=== PATIENT | male | born 1995 | race Caucasian/White ===

== ENCOUNTER 2024-01-19 08:35 | Emergency (ER) | payer SELFPAY ==
[2024-01-19 09:03] LABS: Absolute Eosinophils 0.1 K/uL (0-0.5); Absolute Lymphocytes (CBC) 1.8 K/uL (0.7-4.9); Absolute Monocytes 1.1 K/uL (0.1-1.3); Absolute Neutrophil 5.6 K/uL (1.8-8.0); Basophils % 0.4 % (0-1.3); Eosinophils % 1.3 % (0-4.4); Hematocrit 44.2 % (39.6-49.0); Hemoglobin 14.3 g/dL (13.6-17.9); Lymphocytes % 20.9 % (15.3-44.8); MCH 28.4 pg (27.0-35.0); MCHC 32.3 g/dL (32.0-36.0); MCV 88.1 fL (80-100); MPV 8.1 fL (7.6-11.3); Monocytes % 12.3 % (3.3-12.3); Neutrophils % 65.1 % (41.7-73.7); Platelets 347 thou/uL (152-406); RBC Red Blood Cell Count 5.02 M/uL (4.33-5.43); Red Cell Distribution Width 12.9 % (12.1-15.2)
[2024-01-19 09:19] LABS: Albumin 3.7 g/dL (3.4-5.0); Albumin/Globulin Ratio 0.9 (1.1-1.8); Anion Gap 6.8 mEq/L (5.0-15.0); Bilirubin Total 0.6 mg/dL (0.2-1.0); Globulin 4.1 g/dL (2.3-3.5); Potassium 3.8 mEq/L (3.5-5.1); Protein, Total 7.8 g/dL (6.4-8.2)
--- NOTE | 2024-01-19 09:37 | RAD REPORT ---
EXAMINATION: CT ABDOMEN AND PELVIS WITH CONTRAST CLINICAL INDICATION: ABD PAIN TECHNIQUE: CT abdomen and pelvis was performed, after the administration of IV contrast, as per [facility] protocol. Axial, sagittal and coronal reconstructions were obtained. One or more of the following dose reduction techniques were used: Automated exposure control, adjustment of the mA and k V according to patient size, and iterative reconstruction. Unless otherwise specified, incidental findings do not require dedicated imaging follow-up. COMPARISON: No prior exam. FINDINGS: LOWER CHEST: The visualized lung bases are clear. LIVER: Normal in size and contour. No focal lesion. Grossly unremarkable gallbladder. SPLEEN: Normal size. No focal lesion. PANCREAS: No mass, ductal dilation, or dmitri-pancreatic fluid. ADRENALS: Normal; no mass. KIDNEYS: Normal size and contour. No hydronephrosis. GASTROINTESTINAL TRACT: No evidence of free air, significant intra-abdominal free fluid, bowel obstru ction or abscess. There is mild thickening of the terminal ileum seen with trace adjacent fluid. APPENDIX: Normal appendix. LYMPH NODES: No lymphadenopathy. MUSCULOSKELETAL: No acute or suspicious osseous abnormality. ADDITIONAL FINDINGS: None. IMPRESSION: There is likely inflammation of the terminal ileum present suggesting ileitis. This may be infectious or secondary to inflammatory bowel disease.
--- NOTE | 2024-01-19 10:21 | ER ---
Nurse's Notes [facility] Name: Glenn Chisholm Age: 28 yrs Sex: Male : 1995 Arrival Date: 01/19/2024 Time: 08:35 Bed 4 Private MD: Diagnosis: Ileitis Presentation: 01/18 08:49 Chief complaint: Patient states: he as been having abdominal pain that started Thursday ap3 01/15/24, and the pain is not getting any better. patient currently rates her pain as a 2/10 on the pain scale, and reports N/V/D. Coronavirus screen: At this time, the client does not indicate any symptoms associated with coronavirus-19. Ebola Screen: No symptoms or risks identified at this time. Initial Sepsis Screen: Does the patient meet any 2 criteria? No. Patient's initial sepsis screen is negative. Does the patient have a suspected source of infection? No. Patient's initial sepsis screen is negative. Risk Assessment: Do you want to hurt yourself or someone else? Patient reports no desire to harm self or others. Onset of symptoms was January 15, 2024. 08:49 Method Of Arrival: Ambulatory ap3 08:49 Acuity: STEPAN 3 ap3 Triage Assessment: 08:51 General: Appears in no apparent distress. Behavior is calm, cooperative, appropriate ap3 for age. Pain: Complains of pain in abdomen Pain currently is 2 out of 10 on a pain scale. Pain began 01/15/24. Neuro: Level of Consciousness is awake, alert, obeys commands, Oriented to person, place, time, situation, Appropriate for age. Cardiovascular: Patient's skin is warm and dry. Respiratory: Airway is patent Respiratory effort is even, unlabored, Respiratory pattern is regular, symmetrical. GI: Reports lower abdominal pain, upper abdominal pain, diarrhea, nausea, vomiting. Historical: - Allergies: 08:51 No Known Allergies; ap3 - Home Meds: 08:51 None [Active]; ap3 - PMHx: 08:51 None; ap3 - Immunization history:: Adult Immunizations up to date. - Infectious Disease History:: Denies. - Social history:: Smoking status: Patient reports the use of cigarette tobacco products, denies chronic smoking, but will smoke occasionally. - Family history:: not pertinent. - Hospitalizations: : No recent hospitalization is reported. Screenin:[facility] ED Fall Risk Assessment (Adult) History of falling in the last 3 months, ap3 including since admission No falls in past 3 months (0 pts) Confusion or Disorientation No (0 pts) Intoxicated or Sedated No (0 pts) Impaired Gait No (0 pts) Mobility Assist Device Used No (0 pt) Altered Elimination No (0 pt) Score/Fall Risk Level 0 - 2 = Low Risk Oriented to surroundings, Maintained a safe environment, Educated pt \T\ family on fall prevention, incl call for assistance when getting out of bed, Assessed \T\ reinforced patient's understanding of fall precautions, Hourly rounding (assess needs \T\ fall precautionary measures) done, Used ambulatory aids as needed (educated on \T\ assisted with), Used gait belt as appropriate. Abuse screen: Denies threats or abuse. Nutritional screening: No deficits noted. Tuberculosis screening: No symptoms or risk factors identified. Vital Signs: 08:49 BP 127 / 68; Pulse 69; Resp 17; Pulse Ox 100% ; Weight 95.25 kg; Height 5 ft. 10 in. ; ap3 Pain 2/10; 08:55 Temp 99(O); ap3 09:30 BP 129 / 88; Pulse 73; Resp 17 S; Pulse Ox 100% on R/A; kc6 08:49 Body Mass Index 30.13 (95.25 kg, 177.8 cm) ap3 08:49 Pain Scale: Adult ap3 ED Course: 08:40 Patient arrived in ED. im 08:44 Bola Capone MD is Attending Physician. rn 08:46 Norma Barahona RN is Primary Nurse. ap3 08:51 Triage completed. ap3 08:52 Arm band placed on right wrist. ap3 08:52 Patient has correct armband on for positive identification. Bed in low position. Call ap3 light in reach. Side rails up X 1. Provided Education on: fall risk education. Pulse ox on. NIBP on. 08:56 Flu Sent. bc6 08:57 CBC with Diff Sent. bc6 08:57 CMP Sent. bc6 08:57 Lipase Sent. bc6 08:57 Initial lab(s) drawn, by nh, sent to lab. Flu and/or RSV swab sent to lab. Inserted bc6 saline lock: 20 gauge in right antecubital area, using aseptic technique. Blood collected. Flushed with 10 mL NS. 09:23 CT Abd/Pelvis - IV Contrast Only In Process Unspecified. EDMS 10:31 No provider procedures requiring assistance completed. IV discontinued, intact, kc6 bleeding controlled, No redness/swelling at site. Pressure dressing applied. Administered Medications: 10: Drug: Amoxicillin-Clavulanate PO 875 mg PO once Route: PO; kc6 10:30 Follow up: Response: No adverse reaction kc6 Medication: : VIS not applicable for this client. kc6 Outcome: : Discharge ordered by . rn : Discharged to home ambulatory, kc6 : Condition: good : Discharge instructions given to patient, Instructed on discharge instructions, follow up and referral plans. medication usage, Demonstrated understanding of instructions, follow-up care, medications, Prescriptions given X 2, : Patient left the ED. kc6 Signatures: Dispatcher [employer] EDMS Bola Capone MD MD rn Prokisch, Amanda, RN RN ap3 Luz Tran RN RN kc6 Lawanda Olvera Itzel im
--- NOTE | 2024-01-19 10:21 | EDPHYS ---
Physician Documentation [facility] Name: Glenn Chisholm Age: 28 yrs Sex: Male : 1995 Arrival Date: 01/19/2024 Time: 08:35 Bed 4 Private MD: ED Physician Bola Capone HPI: 01/18 10:19 This 28 yrs old Male presents to ER via Ambulatory with complaints of Abdominal Pain, rn Diarrhea. 10:19 The patient presents to the emergency department with nausea, vomiting, diarrhea, rn abdominal pain. Onset: The symptoms/episode began/occurred yesterday. Possible causes: unknown. The symptoms are aggravated by nothing. The symptoms are alleviated by nothing. Severity of symptoms: At their worst the symptoms were moderate in the emergency department the symptoms are unchanged. The patient has not experienced similar symptoms in the past. Patient reports 2 days of lower abdominal pain associated with diarrhea. Nonbloody diarrhea. No fever or chills. Does report mild nausea.. Historical: - Allergies: 08:51 No Known Allergies; ap3 - Home Meds: 08:51 None [Active]; ap3 - PMHx: 08:51 None; ap3 - Immunization history:: Adult Immunizations up to date. - Infectious Disease History:: Denies. - Social history:: Smoking status: Patient reports the use of cigarette tobacco products, denies chronic smoking, but will smoke occasionally. - Family history:: not pertinent. - Hospitalizations: : No recent hospitalization is reported. ROS: 10:19 Constitutional: Negative for fever, chills, and weight loss, Cardiovascular: Negative rn for chest pain, palpitations, and edema, Respiratory: Negative for shortness of breath, cough, wheezing, and pleuritic chest pain, Abdomen/GI: Positive for abdominal pain with diarrhea MS/Extremity: Negative for injury and deformity, Skin: Negative for injury, rash, and discoloration, Neuro: Negative for headache, weakness, numbness, tingling, and seizure, Exam: 10:19 Constitutional: This is a well developed, well nourished patient who is awake, alert, rn and in no acute distress. Cardiovascular: Regular rate and rhythm. No pulse deficits. Respiratory: No increased work of breathing, no retractions or nasal flaring. Abdomen/GI: Soft, mild left lower quadrant and right lower quadrant tenderness. No peritoneal signs Vital Signs: 08:49 BP 127 / 68; Pulse 69; Resp 17; Pulse Ox 100% ; Weight 95.25 kg; Height 5 ft. 10 in. ; ap3 Pain 2/10; 08:55 Temp 99(O); ap3 09:30 BP 129 / 88; Pulse 73; Resp 17 S; Pulse Ox 100% on R/A; kc6 08:49 Body Mass Index 30.13 (95.25 kg, 177.8 cm) ap3 08:49 Pain Scale: Adult ap3 MDM: 08:44 Medical Screening Exam initiated rn 10:19 Differential diagnosis: Nonspecific abd pain, viral gastroenteritis, gastroenteritis, rn Colitis, diverticulitis, ileitis, inflammatory bowel disease. Data reviewed: vital signs, nurses notes, lab test result(s), radiologic studies, CT scan, and as a result, I will discharge patient. Counseling: I had a detailed discussion with the patient and/or guardian regarding the historical points, exam findings, and any diagnostic results supporting the discharge/admit diagnosis, lab results, radiology results, the need for outpatient follow up, to return to the emergency department if symptoms worsen or persist or if there are any questions or concerns that arise at home. Special discussion: Based on the patient's Hx, exam, and Dx evaluation, there is no indication for emergent surgery or inpatient Tx. It is understood by the patient/guardian that if the Sx's persist or worsen they need to return immediately for re-evaluation. I discussed with the patient/guardian in detail that at this point there is no indication for admission to the hospital. It is understood, however, that if the symptoms persist or worsen the patient needs to return immediately for re-evaluation. ED course: CT shows mild ileitis. No family history of inflammatory bowel disease, will discharge home with antibiotics and return precautions.. 01/18 08:45 Order name: CBC with Diff; Complete Time: :45 rn 01/18 08:45 Order name: CMP; Complete Time: 45 rn 01/18 08:45 Order name: Lipase; Complete Time: 45 rn 01/18 08:45 Order name: Flu; Complete Time: rn 01/18 08:45 Order name: CT Abd/Pelvis - IV Contrast Only; Complete Time: rn 01/18 08:45 Order name: IV Saline Lock; Complete Time: :56 rn 01/18 08:45 Order name: Labs collected and sent; Complete Time: 08:56 rn Administered Medications: 10:26 Drug: Amoxicillin-Clavulanate PO 875 mg PO once Route: PO; kc6 10:30 Follow up: Response: No adverse reaction kc6 Disposition Summary: 01/19/24 10:21 Discharge Ordered Notes: Location: Home rn Problem: new rn Symptoms: have improved rn Condition: Stable rn Diagnosis - Ileitis rn Followup: rn - With: Private Physician - When: As needed - Reason: Recheck today's complaints, Re-evaluation by your physician Discharge Instructions: - Discharge Summary Sheet rn - Abdominal Pain, Adult rn - Diarrhea, Adult rn Forms: - Medication Reconciliation Form rn - Antibiotic bankruptcy attorney - Prescription Opioid Use rn - Patient Portal Instructions rn - Leadership Thank You Letter rn - Work release form kc6 Prescriptions: - ondansetron 4 mg Oral Tablet,disintegrating - take 1 tablet ORAL route every 8 hours As needed; 14 tablet; Refills: 0, rn Product Selection Permitted - Augmentin 875-125 mg Oral Tablet - take 1 tablet ORAL route every 12 hours for 10 days; 20 tablet; Refills: 0, rn Product Selection Permitted Signatures: Dispatcher [employer] EDMS Bola Capone MD MD rn Prokisch, Amanda, RN RN ap3 Luz Tran RN RN kc6 Corrections: (The following items were deleted from the chart) 08:45 08:45 Abdomen Pelvis W Con+CT.RAD.BRZ ordered. EDMS EDMS
[2024-01-19] MEDS ORDERED: AMOX/K CLAV 875 MG TAB ONE (10:23)
[2024-01-19 14:16] VITALS: O2SAT 100
[2024-01-19 14:21] VITALS: TEMP 99
[2024-01-19 14:27] VITALS: BP 129/88
== END 2024-01-19 10:31 | disposition home or self-care (01) ==
LOC: ER 08:35
DX: K52.9 Noninfective gastroenteritis and colitis, unspecified (principal); F17.210 Nicotine dependence, cigarettes, uncomplicated
CPT/HCPCS: 36415; 74177; 80053; 83690; 85025; 87804; 99284; Q9967

== ENCOUNTER 2024-04-05 16:29 | Emergency (ER) | payer SELFPAY ==
--- OUTSIDE RECORDS SUMMARY | 2024-04-05 16:32 | XMS REPORT | Continuity of Care Document ---
Author Name Unknown Address [address] [place] [address] [facility] thconnect Address [address] [place] [address] Care Team Providers Care Shell Assembler Name Role Phone Waylon Johnson Primary Care Physician RADHA MAK Attending Clinician Unavailable RADHA MAK Admitting Clinician Unavailable Social History Smoking Status Start Date Stop Date Source Current every day smoker [facility] (LUF/RAMIRE[facility]/SA) Medications Ordered Medication Name Filled Medication Name Start Date Stop Date Current Medication? Ordering Clinician Indication Dosage Frequency Signature (SIG) Comments Components Source Amoxicillin Amoxicillin Yes 1000mg TID [facility] (LUF/LI V/SA) Ibuprofen 800 MG Oral Tablet Ibuprofen 800 MG Oral Tablet Yes 800mg TID [facility] (LUF/LI V/SA) Vital Signs Vital Name Observation Time Observation Value Comments S jose Weight Measured 2024-01-25 08:18:00 199.60 pounds Marco Laguna Height Measured 2024-01-25 08:18:00 70.00 inches Marco F Jase Body Temperature 2024-01-25 08:18:00 97.90 degrees Marco F Jase Heart Rate 2024-01-25 08:18:00 76.00 /min Shanda en F Jase Respiratory Rate 2024-01-25 08:18:00 16.00 /min Marco F Jase BP Systolic 2024-01-25 08:18:00 131 mm[Hg] Step hen F Jase BP Diastolic 2024-01-25 08:18:00 78 mm[Hg] Talha phen F Jase Body Temperature 2017-07-27 21:24:[address] [facility] (LUF/RAMIREZ/SA) Respiratory Rate 2017-07-27 21:24:00 18 /min [facility] (LUF/RAMIREZ/SA) O2% BldC Oximetry 2017-07-27 21:24:00 98 % [facility] (LUF/[facility]IREZ/SA) BP Systolic 2017-07-27 19:42:00 140 mm[Hg] [facility] (LUF/RAMIREZ/SA) BP Diastolic 2017-07-27 19:42:00 89 mm[Hg] [facility] (LUF/RAMIREZ/SA) Height 2017-07-27 19:42:00 [address] in [facility] S [facility] (LUF/RAMIREZ/SA) Weight Measured 2017-07-27 19:42:00 222.66 lbs [facility] (LUF/RAMIREZ/SA) BMI (Body Mass Index) 2017-07-27 19:42:00 34.1 [facility] (LUF/RAMIREZ/SA) Encounters Start Date/Time End Date/Time Encounter Type Admission Type Attending [facility] Facility Care Department Encounter ID Source 2024-01-25 08:01:32 2024-01-25 08:01:32 Outpatient [facility] [id number] 2024-01-25 00:00:00 2024-01-25 00:00:00 Outpatient Visit [facility] [id number] Marco Laguna 2017-07-27 19:20:00 2017-07-27 21:52:00 ACUTE PHARYNGITI S UNSPECIFIE RADHA STEELE [facility], [address] [place] [address] [facility] [id number] [facility] (LUF/LI V/SA) Results Test Description Test Time Test Comments Results Result Co mments Source Marco LagunaSTREP A [id number] 07:42:00* Test Item Value Reference Range Interpretation Comme nts Strep A culture (test code = STRAC) [facility] [id number] 21:22:38EXAM:CT Neck With Intravenous ContrastCLINICAL HISTORY:21 years old, male; Signs and symptoms; Mass, lump, or swelling in neck;Additional info: Swelling on left side of neckTECHNIQUE:Axial computed tomography images of the neck with intravenous contrast. AllCT scans at this facility use one or moredose reduction techniques, viz.:automated exposure control; ma/kV adjustment per patient size (inclu dingtargeted exams where dose is matched to indication; i.e. head); or iterativereconstruction technique.Coronal and sagittal reformatted images were created and reviewed.CONTRAST:90 mL of administered intravenously.COMPARISON:No relevant prior studies available.FINDINGS:Oropharynx: Bilateral tonsillar enlargement, left worse than right,consistent with tonsillitis. No peritonsillar abscess.Hypopharynx: Unremarkable.Larynx: Unremarkable. Normal epiglottis.Trachea: Unremarkable.Retropharyngeal space: Unremarkable.Submandibular/parotid glands: The salivary glands are unremarkable.Thyroid: Unremarkable. No enlarged or calcified nodules.Bones/joints: No acute fracture.Soft tissues: Unre markable.Vasculature: Unremarkable.Lymph nodes: Asymmetric cervical lymphadenopathy. Lymph nodes inthe leftanterior jugular region noted, measuring up to 20 mm in length. Right sidednodes measure upto 15 mm.Sinuses: Retention cysts in the bilateral maxillary sinuses. The otherincluded paranasal sinuses are clear.Lung apices: Unremarkable as visualized.IMPRESSION:1. Bilateral tonsillar enlargement, left worse than right, consistent withtonsillitis. No peritonsillar abscess.2. Asymmetric cervical lymphadenopathy. Lymph nodes in the left anteriorjugular region noted, measuring up to 20 mm in length. Right sided nodesmeasure up to 15 mm.3. Retention cysts in the bilateral maxillary sinuses. The other includedparanasal sinuses are clear.This Final report was electronically signed by Kaushik Burgess MD on 27 Jul 20179:22 PM CDT.Dictated By: KAUSHIK BURGESSDate: 07/27/2017 21:22[place] [address] [id number] 20:36:00* Test Item Value Reference Range Interpretation Comme nts Sodium (test code = NA) 135 mmol/l 128-145 Potassium (test code = K) 3.0 mmol/l 3.6-5.1 L CO2 (test code = CO2) 26 mmol/l 18-33 Chloride (test code = CL) 100 mmol/l 98-108 Glucose (test code = GLU) 105 mg/dl 73-118 Calcium (test code = CALC) 8.4 mg/dl 8.0-10.3 BUN (test code = BUN) 5 mg/dl 7-22 L Creatinine (test code = CREA) 0.8 mg/dl 0.6-1.2 [facility] [id number] 20:27:00* Test Item Value Reference Range Interpretation Comme nts WBC (test code = WBC) 9.4 10\S\9/L 3.5-10.0 LY% (test code = LY) 14.7 % 15.0-50.0 L MIDS% (test code = MIDS) 5.1 % 2.0-15.0 Granulocytes % (test code = GRA%) 80.2 % 35.0-80.0 H Lymphocytes (test code = LYMPH) 1.3 10\S\9/L 0.5-5.0 MID (test code = MID) 0.6 10\S\9/L 0.1-1.5 Granulocytes (test code = GRAN) 7.5 10\S\9/L 1.2-8.0 RBC (test code = RBC) 4.75 10\S\12/L 3.50-5.50 Hemoglobin (test code = HGB) 13.5 gm/dl 11.5-16.5 Hematocrit (test code = HCT) 40.4 % 35.0-55.0 MCV (test code = MCV) 85.1 fL 75.0-100.0 MCH (test code = MCH) 28.4 pg 25.0-35.0 MCHC (test code = MCHC) 33.4 gm/dl 31.0-38.0 RDW % (test code = RDW%) 13.1 % 11.0-16.0 Platelet (test code = PLT) 212 10\S\9/L 100-400 MPV (test code = MPV) 8.0 fL 8.0-11.0 A [facility] STREP [id number] 19:54:00* Test Item Value Reference Range Interpretation Comme nts Strep A Screen (test code = SAS) Negative Negative N [facility] [id number] 19:54:00* Test Item Value Reference Range Interpretation Comme nts Infectious Mononucleosis (te st code = MONO) Negative Negative N [facility] Notes Date/Time Note Provider Source Marco Fish [facility]
[2024-04-05] MEDS ORDERED: ONDANSETRON 4 MG (ODT) TAB ONE (16:50)
[2024-04-05 17:15] LABS: SARS-CoV-2 Antigen CONTROL BLUE LINE VIS/BG OK; SARS-CoV-2 Antigen Rapid Res Negative (Negative)
--- NOTE | 2024-04-05 17:19 | EDPHYS ---
Physician Documentation [facility] Name: Glenn Chisholm Age: 28 yrs Sex: Male : 1995 Arrival Date: 04/05/2024 Time: 16:29 Bed 17 Private MD: ED Physician Haile Larios HPI: 04/05 16:34 This 28 yrs old Male presents to ER via Unassigned with complaints of Flu Symptoms. kb 16:34 Pt is a 28 year old male who presents for cough, congestion, runny nose, sore throat, kb fever, diarrhea and vomiting for 5 days. 4 of pt's children have same symptoms. . Historical: - Allergies: 16:48 No Known Allergies; me1 - Home Meds: 16:48 None [Active]; me1 - PMHx: 16:48 None; me1 - PSHx: 16:48 None; me1 - Immunization history:: Adult Immunizations up to date. - Infectious Disease History:: Denies. - Social history:: Smoking status: Reported history of juuling and/or vaping. ROS: 16:34 Constitutional: As per HPI kb Exam: 16:34 Constitutional: This is a well developed, well nourished patient who is awake, alert, kb and in no acute distress. Head/Face: Normocephalic, atraumatic. ENT: Moist Mucous membranes Cardiovascular: Regular rate Respiratory: Respirations even and unlabored. No increased work of breathing. Talking in full sentences Abdomen/GI: Soft, non-tender. No distention Skin: Warm, dry with normal turgor. Normal color. MS/ Extremity: Pulses equal, no cyanosis. Neurovascular intact. Full, normal range of motion. Neuro: Awake and alert, GCS 15, oriented to person, place, time, and situation. Vital Signs: 16:43 BP 106 / 76; Pulse 114; Resp 19; Temp 99.9(O); Pulse Ox 98% ; Weight 95.25 kg; Height 5 me1 ft. 11 in. ; 16:43 Body Mass Index 29.29 (95.25 kg, 180.34 cm) me1 MDM: 16:33 Medical Screening Exam initiated kb 16:36 Differential diagnosis: flu, covid, strep, uri. Data reviewed: vital signs, nurses kb notes. 17:18 I considered the following discharge prescriptions or medication management in the emergency department I discussed and recommended Over The Counter medications, Antibiotics: At this time antibiotics are not recommended, Antivirals: At this time, antivirals are not recommended. Counseling: I had a detailed discussion with the patient and/or guardian regarding the historical points, exam findings, and any diagnostic results supporting the discharge/admit diagnosis, lab results, the need for outpatient follow up, a family practitioner, to return to the emergency department if symptoms worsen or persist or if there are any questions or concerns that arise at home. 04/05 16:35 Order name: Flu; Complete Time: 17:18 04/05 16:35 Order name: Strep 04/05 16:35 Order name: SARS-COV-2 Antigen Rapid; Complete Time: 17:17 04/05 17:19 Order name: Throat Culture EDMS Administered Medications: 16:59 Drug: Ondansetron PO 4 mg PO once Route: PO; cm10 17:42 Follow up: Response: No adverse reaction cm10 Disposition: 17:59 I was immediately available on-site in the Emergency Department for consultation in the ms3 care of the patient. Disposition Summary: 04/05/24 17:19 Discharge Ordered Notes: Location: Home Condition: Stable Diagnosis - Influenza due to identified novel influenza A virus kb Followup: kb - With: Emergency Department - When: As needed - Reason: Worsening of condition Followup: kb - With: Private Physician - When: 2 - 3 days - Reason: Recheck today's complaints, Continuance of care, Re-evaluation by your physician Discharge Instructions: - Discharge Summary Sheet kb - Influenza, Adult, [id number] kb Forms: - Medication Reconciliation Form kb - Antibiotic Education kb - Prescription Opioid Use kb - Patient Portal Instructions kb - Leadership Thank You Letter Prescriptions: - ondansetron 4 mg Oral Tablet,disintegrating - take 1 tablet ORAL route every 6 hours As needed; 12 tablet; Refills: 0, kb Product Selection Permitted Signatures: Dispatcher [employer] Gretchen Matute, PEDRITO SOUSA-Haile Garcia DO DO ms3 Shani Prescott RN RN cm10 Sheron Rincon RN RN me1 Corrections: (The following items were deleted from the chart) 16:36 16:36 Influenza Screen (A \T\ B)+BA.LAB.BRZ ordered. EDMS EDMS 16:36 16:36 Group A Streptococcus Rapid Sc+BA.LAB.BRZ ordered. EDMS EDMS 16:36 16:36 SARS-COV-2 Antigen Rapid+I.LAB.BRZ ordered. EDMS EDMS
--- NOTE | 2024-04-05 17:19 | ER ---
Nurse's Notes [facility] Name: Glenn Chisholm Age: 28 yrs Sex: Male : 1995 Arrival Date: 04/05/2024 Time: 16:29 Bed 17 Private MD: Diagnosis: Influenza due to identified novel influenza A virus Presentation: 04/05 16:43 Chief complaint: Patient states: cough, congestion, fever, body aches, vomiting, sore me1 throat for 2-3 days. Reports some lightheadedness. Coronavirus screen: Vaccine status: Patient reports being unvaccinated. Ebola Screen: No symptoms or risks identified at this time. Initial Sepsis Screen: Does the patient meet any 2 criteria? No. Patient's initial sepsis screen is negative. Risk Assessment: Do you want to hurt yourself or someone else? Patient reports no desire to harm self or others. Onset of symptoms was April 03, 2024. 16:43 Method Of Arrival: Ambulatory [facility] [place] 16:43 Acuity: STEPAN 4 me1 17:43 Initial Sepsis Screen: Does the patient have a suspected source of infection? No. cm10 Patient's initial sepsis screen is negative. Historical: - Allergies: 16:48 No Known Allergies; me1 - Home Meds: 16:48 None [Active]; me1 - PMHx: 16:48 None; me1 - PSHx: 16:48 None; me1 - Immunization history:: Adult Immunizations up to date. - Infectious Disease History:: Denies. - Social history:: Smoking status: Reported history of juuling and/or vaping. Screenin:[address] [facility] ED Fall Risk Assessment (Adult) History of falling in the last 3 months, cm10 including since admission No falls in past 3 months (0 pts) Confusion or Disorientation No (0 pts) Intoxicated or Sedated No (0 pts) Impaired Gait No (0 pts) Mobility Assist Device Used No (0 pt) Altered Elimination No (0 pt) Score/Fall Risk Level 0 - 2 = Low Risk Oriented to surroundings, Maintained a safe environment, Hourly rounding (assess needs \T\ fall precautionary measures) done. Abuse screen: Denies threats or abuse. Denies injuries from another. Nutritional screening: No deficits noted. Tuberculosis screening: No symptoms or risk factors identified. Assessment: 17:13 General: Appears in no apparent distress. uncomfortable, Behavior is calm, cooperative, cm10 appropriate for age. Pain: Complains of pain in throat. Neuro: No deficits noted. Level of Consciousness is awake, alert, obeys commands, Oriented to person, place, time, situation, Appropriate for age. Respiratory: No deficits noted. Airway is patent Respiratory effort is even, unlabored, Respiratory pattern is regular, symmetrical. Respiratory: Reports cough that is pain with cough. EENT: Reports pain when swallowing. 17:43 Reassessment: Patient appears in no apparent distress at this time. Patient and/or cm10 family updated on plan of care and expected duration. Pain level reassessed. Patient is alert, oriented x 3, equal unlabored respirations, skin warm/dry/pink. Vital Signs: 16:43 BP 106 / 76; Pulse 114; Resp 19; Temp 99.9(O); Pulse Ox 98% ; Weight 95.25 kg; Height 5 me1 ft. 11 in. ; 16:43 Body Mass Index 29.29 (95.25 kg, 180.34 cm) me1 ED Course: 16:32 Patient arrived in ED. mr 16:33 Minh Gretchen, PEDRITO [facility]. kb 16:33 Haile Larios DO is Attending Physician. kb 16:48 Triage completed. me1 16:48 Arm band placed on Patient placed in an exam room. me1 16:53 SARS-COV-2 Antigen Rapid Sent. iw 16:53 Strep Sent. iw 16:53 Flu Sent. iw 16:53 COVID swab sent to lab. Flu and/or RSV swab sent to lab. Strep swab sent to lab. me1 17:12 Shani Prescott, RN is Primary Nurse. cm10 17:14 Patient has correct armband on for positive identification. Bed in low position. Call cm10 light in reach. Provided Education on: ER process and procedures.. 17:43 No provider procedures requiring assistance completed. Patient did not have IV access cm10 during this emergency room visit. Administered Medications: 16:59 Drug: Ondansetron PO 4 mg PO once Route: PO; cm10 17:42 Follow up: Response: No adverse reaction cm10 Medication: 17:14 VIS not applicable for this client. cm10 Outcome: 17:19 Discharge ordered by . kb 17:43 Discharged to home ambulatory, cm10 17:43 Condition: good 17:43 Discharge instructions given to patient, Instructed on discharge instructions, follow up and referral plans. medication usage, Demonstrated understanding of instructions, follow-up care, medications, Prescriptions given X 1, 17:43 Patient left the ED. cm10 Signatures: Gretchen Wilkinson, STONE GRADER-C STONE GRADER-Ckb Rita Abraham, Reg Reg mr Pauline Kamara RN RN iw Shani Prescott RN RN 10 Sheron Rincon RN RN mn1
[2024-04-05 21:30] VITALS: BP 106/76; TEMP 99.9; O2SAT 98
== END 2024-04-05 17:43 | disposition home or self-care (01) ==
LOC: ER 16:29
DX: J10.1 Influenza due to other identified influenza virus with other respiratory manifestations (principal); Z11.52 Encounter for screening for COVID-19
CPT/HCPCS: 36415; 87070; 87081; 87804; 87811; 99283; Q0162

== ENCOUNTER 2024-04-17 09:42 | Emergency (ER) | payer SELFPAY ==
--- OUTSIDE RECORDS SUMMARY | 2024-04-17 09:49 | XMS REPORT | Continuity of Care Document ---
Author Name Unknown Address [address] [place] [address] [facility] thconnect Address 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 Role Phone Waylon Johnson Primary Care Physician [phone] RADHA MAK Attending Clinician Unavailable RADHA MAK [...] (LUF/RAMIREZ/SA) Respiratory Rate 2017-07-27 21:24:00 18 /min [facility] (LUF/RAMIREZ/SA) O2% BldC Oximetry 2017-07-27 21:24:00 98 % [facility] (LUF/RAMIREZ/SA) BP Systolic 2017-07-27 19:42:00 140 mm[Hg] [facility] (LUF/RAMIREZ/SA) BP Diastolic 2017-07-27 19:42:00 89 mm[Hg] [facility] (LUF/RAMIREZ/SA) Height 2017-07-27 19:42:00 68 in [facility] S [facility] (LUF/RAMIREZ/SA) Weight Measured 2017-07-27 19:42:00 222.66 lbs [facility] (LUF/RAMIREZ/SA) BMI (Body Mass Index) 2017-07-27 19:42:00 34.1 [facility] (LUF/RAMIREZ/SA) Encounters Start Date/Time End Date/Time Encounter Type Admission Type Attending [facility] Care Facility Care Department Encounter ID Source 2024-01-25 08:01:32 2024-01-25 08:01:32 Outpatient [facility] [id number] 2024-01-25 00:00:00 2024-01-25 00:00:00 Outpatient Visit [facility] [id number] Marco Laguna 2017-07-27 19:20:00 2017-07-27 21:52:00 ACUTE PHARYNGITI S UNSPECIFIE RADHA STEELE [facility], [address] [place] [address] [facility] [id number] [facility] (LUF/LI V/SA) Results Test Description Test Time Test Comments Results Result Co mments Source Marco LagunaSTREP A [id number] 07:42:00* Test Item Value Reference Range Interpretation Comme nts Strep A culture (test code = STRAC) Negative [facility]K [id number] 21:22:38EXAM:CT Neck With Intravenous ContrastCLINICAL HISTORY:21 years [...] images were created and reviewed.CONTRAST:90 mL of [id number] administered intravenously.COMPARISON:No relevant prior studies available.FINDINGS:Oropharynx: Bilateral [...] 20179:22 PM CDT.Dictated By: KAUSHIK BURGESSDate: 07/27/2017 21:22[place] [address] [id number] 20:36:00* Test Item Value Reference Range Interpretation [...] (test code = CREA) 0.8 mg/dl 0.6-[facility].[address] [facility] [id number] 20:27:00* Test Item Value Reference Range Interpretation [...] code = MPV) 8.0 fL 8.0-11.[address] [facility] STREP [id number] 19:54:00* Test Item Value Reference Range Interpretation Comme nts Strep A Screen (test code = SAS) Negative Negative N [facility] [id number] 19:54:00* Test Item Value Reference Range Interpretation Comme nts Infectious Mononucleosis (te st code = MONO) Negative Negative N [facility] Notes Date/Time Note Provider Source Marco Fish [facility]
[2024-04-17] MEDS ORDERED: HYDROCODONE/APAP 5/325 MG TAB ONE (10:06)
--- NOTE | 2024-04-17 10:54 | RAD REPORT ---
Procedure: Chest Single View HISTORY: Chest pain COMPARISON: none FINDINGS: The lungs appear clear of acute infiltrate. No significant pleural effusion noted. The heart is normal size. IMPRESSION: No acute abnormality is displayed.
[2024-04-17] MEDS ORDERED: CYCLOBENZAPRINE 10 MG TAB ONE (11:09)
--- NOTE | 2024-04-17 11:24 | EDPHYS ---
Physician Documentation [facility] Name: Glenn Chisholm Age: 28 yrs Sex: Male : 1995 Arrival Date: 04/17/2024 Time: 09:42 Bed 16 Private MD: ED Physician Matt Subramanian HPI: 04/17 11:26 This 28 yrs old Male presents to ER via Ambulatory with complaints of Chest Wall Pain, kb Cough. 11:26 Pt is a 28 year old male who presents for right chest wall pain that is worse with kb movement, cough and palpation. States pain started on Thursday after lifting something at work and feeling a pop. . Historical: - Allergies: 09:53 No Known Allergies; iw - Home Meds: :53 None [Active]; iw - PMHx: :53 None; iw - PSHx: :53 None; iw - Immunization history:: Adult Immunizations not up to date. - Infectious Disease History:: Denies. - Social history:: Smoking status: Patient denies any tobacco usage or history of. ROS: 11:02 Constitutional: As per HPI kb Exam: 11:02 Constitutional: This is a well developed, well nourished patient who is awake, alert, kb and in no acute distress. Head/Face: Normocephalic, atraumatic. ENT: Moist Mucous membranes Cardiovascular: Regular rate Respiratory: Respirations even and unlabored. No increased work of breathing. Talking in full sentences Abdomen/GI: Soft, non-tender. No distention Skin: Warm, dry with normal turgor. Normal color. MS/ Extremity: Pulses equal, no cyanosis. Neurovascular intact. Full, normal range of motion. Neuro: Awake and alert, GCS 15, oriented to person, place, time, and situation. 11:02 Chest/axilla: Inspection: normal, Palpation: tenderness, that is moderate, of the anterior aspect of right upper chest, that totally reproduces the patient's complaints, Vital Signs: 09:52 BP 145 / 75; Pulse 96; Resp 18; Pulse Ox 96% on R/A; Weight 92.99 kg; Height 5 ft. 10 iw in. ; Pain 8/10; 11:43 BP 127 / 89; Pulse 87; Resp 18; Temp 97.5; Pulse Ox 98% on R/A; ph 09:52 Body Mass Index 29.41 (92.99 kg, 177.8 cm) iw 09:52 Pain Scale: Adult iw MDM: 09:49 Medical Screening Exam initiated kb 11:23 Differential diagnosis: rib fracture, pneumothorax, muscle strain. Data reviewed: vital kb signs, nurses notes. Historians other than the Patient: Spouse/Significant Other: . Counseling: I had a detailed discussion with the patient and/or guardian regarding the historical points, exam findings, and any diagnostic results supporting the discharge/admit diagnosis, radiology results, the need for outpatient follow up, a family practitioner, to return to the emergency department if symptoms worsen or persist or if there are any questions or concerns that arise at home. 04/17 09:58 Order name: Chest Single View XRAY; Complete Time: 10:55 kb Administered Medications: 10:16 Drug: HYDROcodone-acetaminophen PO 5 mg-325 mg 1 tabs PO once Route: PO; ph 11:31 Follow up: Response: No adverse reaction ph 11:31 Drug: Cyclobenzaprine PO 10 mg PO once Route: PO; ph 11:31 Follow up: Response: No adverse reaction ph Disposition Summary: 04/17/24 11:24 Discharge Ordered Notes: Location: Home kb Condition: Stable kb Diagnosis - Chest pain, unspecified - chest wall pain kb Followup: kb - With: Emergency Department - When: As needed - Reason: Worsening of condition Followup: kb - With: Private Physician - When: 2 - 3 days - Reason: Recheck today's complaints, Continuance of care, Re-evaluation by your physician Discharge Instructions: - Discharge Summary Sheet kb - Chest Wall Pain, [id number] kb Forms: - Medication Reconciliation Form kb - Antibiotic Education kb - Prescription Opioid Use kb - Patient Portal Instructions kb - Leadership Thank You Letter kb - Work release form ph Prescriptions: - Diclofenac Sodium 75 mg Oral tablet, delayed release (enteric coated) - take 1 tablet ORAL route 2 times per day As needed; 30 tablet; Refills: 0, kb Product Selection Permitted - orphenadrine citrate 100 mg Oral Tablet Sustained Release - take 1 tablet ORAL route 2 times per day As needed; 20 tablet; Refills: 0, kb Product Selection Permitted Addendum: 04/18/2024 12:37 Co-signature as Attending Physician, Matt Subramanian MD I agree with the assessment and c north plan of care. Signatures: Dispatcher [employer] Gretchen Matute, LARS-C LARS-Matt Ram MD MD cha Williams, Irene, RN RN iw Nannette Smiley RN RN ph
--- NOTE | 2024-04-17 11:24 | ER ---
Nurse's Notes [facility] Name: Glenn Chisholm Age: 28 yrs Sex: Male : 1995 Arrival Date: 04/17/2024 Time: 09:42 Bed 16 Private MD: Diagnosis: Chest pain, unspecified-chest wall pain Presentation: 04/17 09:52 Chief complaint: Patient states: was lifting something at work on Thursday and felt iw something pop in his chest and now the pain radiates into his right shoulder. Coronavirus screen: At this time, the client does not indicate any symptoms associated with coronavirus-19. Ebola Screen: No symptoms or risks identified at this time. Initial Sepsis Screen: Does the patient meet any 2 criteria? No. Patient's initial sepsis screen is negative. Does the patient have a suspected source of infection? No. Patient's initial sepsis screen is negative. Risk Assessment: Do you want to hurt yourself or someone else? Patient reports no desire to harm self or others. Onset of symptoms was April 15, 2024. 09:52 Method Of Arrival: Ambulatory iw 09:52 Acuity: STEPAN 3 iw Historical: - Allergies: 09:53 No Known Allergies; iw - Home Meds: 09:53 None [Active]; iw - PMHx: 09:53 None; iw - PSHx: 09:53 None; iw - Immunization history:: Adult Immunizations not up to date. - Infectious Disease History:: Denies. - Social history:: Smoking status: Patient denies any tobacco usage or history of. Screenin:16 [facility] ED Fall Risk Assessment (Adult) History of falling in the last 3 months, ph including since admission No falls in past 3 months (0 pts) Confusion or Disorientation No (0 pts) Intoxicated or Sedated No (0 pts) Impaired Gait No (0 pts) Mobility Assist Device Used No (0 pt) Altered Elimination No (0 pt) Score/Fall Risk Level 0 - 2 = Low Risk Oriented to surroundings, Maintained a safe environment, Hourly rounding (assess needs \T\ fall precautionary measures) done. Abuse screen: Denies threats or abuse. Denies injuries from another. Nutritional screening: No deficits noted. Tuberculosis screening: No symptoms or risk factors identified. Assessment: 10:17 General: Appears in no apparent distress. comfortable, Behavior is calm, cooperative, ph appropriate for age. Pain: Complains of pain in right clavicle and anterior aspect of right upper chest Pain radiates to right arm Pain began 2-3 days ago. Neuro: Level of Consciousness is awake, alert, obeys commands, Oriented to person, place, time, situation. Cardiovascular: Reports chest pain, Denies lightheadedness, shortness of breath. Respiratory: Airway is patent Respiratory effort is even, unlabored, Respiratory pattern is regular, symmetrical. Derm: Skin is pink, warm \T\ dry. Musculoskeletal: Circulation, motion, and sensation intact. Range of motion: intact in all extremities. Vital Signs: 09:52 BP 145 / 75; Pulse 96; Resp 18; Pulse Ox 96% on R/A; Weight 92.99 kg; Height 5 ft. 10 iw in. ; Pain 8/10; 11:43 BP 127 / 89; Pulse 87; Resp 18; Temp 97.5; Pulse Ox 98% on R/A; ph 09:52 Body Mass Index 29.41 (92.99 kg, 177.8 cm) iw 09:52 Pain Scale: Adult iw ED Course: 09:47 Patient arrived in ED. im 09:49 Gretchen Wilkinson FNP-C is [facility]. kb 09:49 Matt Subramanian MD is Attending Physician. kb 09:53 Triage completed. iw 09:54 Arm band placed on. iw 09:59 Nannette Smiley, RN is Primary Nurse. ph 10:17 Patient has correct armband on for positive identification. Bed in low position. Call ph light in reach. Side rails up X 1. Pulse ox on. NIBP on. Door closed. Noise minimized. Warm blanket given. 10:17 Patient did not have IV access during this emergency room visit. Patient maintains SpO2 ph saturation greater than 95% on room air. 10:50 Chest Single View XRAY In Process Unspecified. EDMS 11:44 No provider procedures requiring assistance completed. ph Administered Medications: 10:16 Drug: HYDROcodone-acetaminophen PO 5 mg-325 mg 1 tabs PO once Route: PO; ph 11:31 Follow up: Response: No adverse reaction ph 11:31 Drug: Cyclobenzaprine PO 10 mg PO once Route: PO; ph 11:31 Follow up: Response: No adverse reaction ph Medication: 10:17 VIS not applicable for this client. ph Outcome: 11:24 Discharge ordered by . marcos 11:44 Discharged to home ambulatory, with significant other, ph 11:44 Condition: good 11:44 Discharge instructions given to patient, Instructed on discharge instructions, follow up and referral plans. medication usage, Demonstrated understanding of instructions, follow-up care, medications, Prescriptions given X 2, :44 Patient left the ED. ph Signatures: Dispatcher [employer] EDGretchen Lerma, PROCUREMENT CLERK-C PROCUREMENT CLERK-Pauline Daniels RN RN Nannette Smiley RN RN Kendal Pollack
[2024-04-17 12:14] VITALS: BP 127/89; TEMP 97.5; O2SAT 98
== END 2024-04-17 11:44 | disposition home or self-care (01) ==
LOC: ER 09:42
DX: R07.89 Other chest pain (principal)
CPT/HCPCS: 71045; 99283